=== PATIENT | female | born 1965 | race Caucasian/White ===

== ENCOUNTER → 2016-05-13 | Outpatient (CLI) | payer OTHER ==
[2016-03-24 13:01] VITALS: BP 160/88
[~2016-05-13] MED LIST: AMOX1TAB61 PO; CIPR250T30 PO; CYCL10TA2 PO; HYDR-971 PO; PHEN-318 PO
--- NOTE | 2016-05-13 13:13 | KCIC ---
Bilateral digital screening mammograms with CAD: HISTORY Routine screening. COMPARISON Comparison is made to previous studies dated 05/03/2013 and 06/02/2008. FINDINGS Breast density category B. The skin and nipples show no abnormalities. No abnormal lymph nodes are seen in the axilla. The breast parenchyma shows scattered fibroglandular density. There continue to be small intramammary lymph nodes bilaterally. There also continues to be a small circumscribed nodule in the lower inner quadrant of the left breast anteriorly which is unchanged. There are no new dominant masses, suspicious calcifications or architectural distortions. IMPRESSION No evidence of malignancy. Recommend routine annual mammographic screening. This study was interpreted with the benefit of Computerized Aided Detection (CAD). Mammography is not 100% sensitive in detecting breast cancer. Therefore, a self breast exam and a clinical breast exam are very important. A negative mammogram does not negate a clinically suspicious finding and should not result in a delay in biopsying a clinically suspicious abnormality. BI-RADS category 2: Benign. This patient's information has been entered into a reminder system for the patient to be notified with the results of this examination and a target date for her next mammograms. Electronically signed by: Mely Jin MD (May 13, 2016 13:11:23)
== END | disposition home or self-care (01) ==
LOC: KCIC MAMMO 12:27
PROVIDERS: ATTEND Internal Medicine
DX: Z12.31 Encounter for screening mammogram for malignant neoplasm of breast (principal)
CPT/HCPCS: G0202; 77067

== ENCOUNTER 2016-06-09 14:19 | Emergency (ER) | payer OTHER ==
[~2016-06-09] VITALS: Ht 160 cm; Wt 86.2 kg
[2016-06-09 14:42] VITALS: BP 145/87
--- NOTE | 2016-06-09 14:54 | PHYS DOC ---
Past Medical History Past Medical History: Cancer, Other Additional Past Medical Histor: Rectal Cancer-radiation and chemo finished June 2011,[place] Past Surgical History: Hysterectomy, Other Additional Past Surgical Histo: Colostomy,Bladder lift, Oophorectomy Alcohol Use: None Drug Use: None Adult General Chief Complaint Chief Complaint: COUGH HPI HPI Patient is a 50 year old female who presents emergency room today with complaint of harsh, productive cough, fever to 102, sweats and body aches that began approximately one week ago. Patient denies history of heart or lung disease. She is a smoker. She denies hospitalization, antibiotic use or foreign travel within the past 90 days. 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 She denies any complications with that. She is not currently under any radiation or chemotherapy and has not been for greater than 6 months. Patient reports she took ibuprofen within the past 2-3 hours. Review of Systems Review of Systems Constitutional: Denies fever or chills [] Eyes: Denies change in visual acuity, redness, or eye pain [] HENT: Denies nasal congestion or sore throat [] Respiratory: Denies cough or shortness of breath [] Cardiovascular: No additional information not addressed in HPI [] GI: Denies abdominal pain, nausea, vomiting, bloody stools or diarrhea [] : Denies dysuria or hematuria [] Musculoskeletal: Denies back pain or joint pain [] Integument: Denies rash or skin lesions [] Neurologic: Denies headache, focal weakness or sensory changes [] Endocrine: Denies polyuria or polydipsia [] Current Medications Current Medications Current Medications Medications (Trade) Dose Ordered Sig/Jamaal Start Time Stop Time Status Last Admin Dose Admin Albuterol/ Ipratropium (Duoneb) 3 ml 1X ONCE 06/09/16 15:00 06/09/16 15:01 DC 06/09/16 15:03 3 ML Allergies Allergies Allergies Coded Allergies Type Severity Reaction Last Updated Verified morphine Allergy Intermediate Hives and itching. 11/22/15 Yes Physical Exam Physical Exam Constitutional: Well developed, well nourished, no acute distress, non-toxic appearance. Patient is currently afebrile. HENT: Normocephalic, atraumatic, bilateral external ears normal, oropharynx moist, no oral exudates, scant amount of clear rhinorrhea. Eyes: PERRLA, EOMI, conjunctiva normal, no discharge. [] Neck: Normal range of motion, no tenderness, supple, no stridor. No cervical lymphadenopathy. Cardiovascular:Heart rate regular rhythm, no murmur [] Lungs & Thorax: There is no evidence respiratory distress respiratory fatigue. There is no posturing or sensory muscle use. There is central coarse wheezing the resonates to bilateral lung villa. This appears to clear somewhat with deep breath and cough. There are no rales, rhonchi appreciated. Abdomen: Bowel sounds normal, soft, no tenderness, no masses, no pulsatile masses. [] Skin: Warm, dry, no erythema, no rash. [] Back: No tenderness, no CVA tenderness. [] Extremities: No tenderness, no cyanosis, no clubbing, ROM intact, no edema. [] Neurologic: Alert and oriented X 3, normal motor function, normal sensory function, no focal deficits noted. [] Psychologic: Affect normal, judgement normal, mood normal. [] Current Patient Data Vital Signs Vital Signs Date Time Temp Pulse Resp B/P Pulse Ox O2 Delivery O2 Flow Rate FiO2 06/09/16 15:05 Room Air 06/09/16 14:42 98.4 88 20 97 98.4 EKG EKG [] Radiology/Procedures Radiology/Procedures [facility] [address] [place], [place] [id number] IMAGING REPORT Signed PATIENT: DANIELA COLMENARES ACCOUNT: [id number] : 1965 LOCATION: ER AGE: 50 SEX: F EXAM STATUS: REG ER ORD. PHYSICIAN: ISAI JETER REASON: cough and fever PROCEDURE: CHEST PA & LATERAL PA and lateral chest radiographs 06/09/2016 Clinical history: Shortness of breath and congestion with productive cough PA and lateral digital radiographs of the chest were obtained. Comparison study is dated 10/25/2012. Right internal jugular Ysmguu-k-[id number] type catheter has been removed. The cardiac and mediastinal silhouettes are within normal limits in size and configuration. No acute pulmonary infiltrate is seen. No pleural effusion or pneumothorax is noted. Mild degenerative changes are seen involving the thoracic spine. Impression: No acute abnormality is seen. DICTATED and SIGNED BY: SARAH MOMIN MD DATE: 06/09/16 2858 CC: KASEY CASTELLANOS MD; ISAI JETER ~ Course & Med Decision Making Course & Med Decision Making Pertinent Labs and Imaging studies reviewed. (See chart for details) [] Dragon Disclaimer Dragon Disclaimer This electronic medical record was generated, in whole or in part, using a voice recognition dictation system. Departure Departure Impression: Primary Impression: Bronchitis Disposition: HOME, SELF-CARE Condition: IMPROVED Referrals: KASEY CASTELLANOS MD (PCP) Patient Instructions: Acute Bronchitis, [id number] Additional Instructions: 1. Review the discharge instructions provided for self-care and reasons to return to the emergency department. 2. Chest x-ray here today shows no evidence of pneumonia or collapsed lung. 3. Take the medication as prescribed. 4. Contact your primary care doctor's office tomorrow to schedule follow-up appointment to be reevaluated by or Friday. Scripts D-Methorphan Hb/Prometh Hcl (Promethazine-Dm Syrup)118 Ml Syrup5 Ml PO PRN Q6HRS COUGH #120 ML Prov:ISAI JETER 06/09/16 Albuterol Sulfate (Ventolin Hfa Inhaler)18 Gm Hfa.aer.ad2 Puff INH Q4HRS wheezing and shortness of gisel #1 INHALER Ref 0 Prov:ISAI JETER 06/09/16 Prednisone 50 Mg Tablet1 Tab PO DAILY airway inflammation/bronchitis #5 TAB Prov:ISAI JETER 06/09/16 Azithromycin (Azithromycin Tablet)250 Mg Tablet1 Pkg PO UD #6 TAB Prov:ISAI JETER 06/09/16 ISAI JETER Jun 09, 2016 14:54
[2016-06-09] MEDS ORDERED: IPRATRPIUM/ALBUTEROL 0.5/2.5MG 3 ML NEBU. NEB ONE (15:00)
--- NOTE | 2016-06-09 15:11 | RAD ---
PA and lateral chest radiographs 06/09/2016 Clinical history: Shortness of breath and congestion with productive cough PA and lateral digital radiographs of the chest were obtained. Comparison study is dated 10/25/2012. Right internal jugular [id number]-Gwqs type catheter has been removed. The cardiac and mediastinal silhouettes are within normal limits in size and configuration. No acute pulmonary infiltrate is seen. No pleural effusion or pneumothorax is noted. Mild degenerative changes are seen involving the thoracic spine. Impression: No acute abnormality is seen.
[2016-06-09] MEDS ORDERED: AZIT250T6 PO (15:38)
[2016-06-09] MEDS ORDERED: D-ME118S2 PO (15:38)
[2016-06-09] MEDS ORDERED: VENTOLIN HFA18 GM INH (15:38)
[2016-06-09] MEDS ORDERED: PRED50TA PO (15:38)
== END 2016-06-09 15:45 | disposition home or self-care (01) ==
LOC: ER 14:19
DX: J40 Bronchitis, not specified as acute or chronic (principal); F17.200 Nicotine dependence, unspecified, uncomplicated; Z88.5 Allergy status to narcotic agent
CPT/HCPCS: 71020; 94250; 94640; 99284; J7620